=== PATIENT | male | born 1995 | race Caucasian/White ===

== ENCOUNTER 2017-11-15 19:58 | Emergency (ER) | payer SELFPAY ==
[2017-11-15] MEDS ORDERED: LIDOCAINE 1% INJ-PF (10 MG/ML) 30 ML SDV INJ ONE (20:26)
[2017-11-15] MEDS ORDERED: DIPH/PERTUSS(ACELL)/TETANUS VAC/PF 0.5 ML SYR (>=10YO) IM ONE (20:43)
--- NOTE | 2017-11-15 20:46 | ER Document Report ---
ED General - General Chief Complaint: Suicidal Ideation Stated Complaint: LEFT FOREARM LACERATION Time Seen by Provider: 11/15/17 20:20 Mode of Arrival: Ambulatory Information source: Patient, Relative Notes: 22-year-old male presents with self-inflicted wound to the left dorsal forearm. Patient notes occurred just prior to arrival, states he was stressed was having an argument about getting a new job and decided to relieve his stress by stabbing himself. Patient denies any previous similar episodes Patient has not had tetanus since his childhood vaccinations TRAVEL OUTSIDE OF THE [place] IN LAST 30 DAYS: No - HPI Onset: Just prior to arrival Onset/Duration: Sudden Quality of pain: Sharp Severity: Mild Pain Level: 1 Associated symptoms: Other Exacerbated by: Movement Relieved by: Denies Similar symptoms previously: No Recently seen / treated by doctor: No Past Medical History - Social History Smoking Status: Never Smoker Cigarette use (# per day): No Chew tobacco use (# tins/day): No Smoking Education Provided: No Frequency of alcohol use: None Drug Abuse: None Family History: Reviewed & Not Pertinent Patient has suicidal ideation: No Patient has homicidal ideation: No Renal/ Medical History: Denies: Hx Peritoneal Dialysis Review of Systems - Review of Systems Notes: REVIEW OF SYSTEMS: CONSTITUTIONAL : Denies fever, chills, or sweats. Denies recent illness. EENT: Denies eye, ear, throat, or mouth pain or symptoms. Denies nasal or sinus congestion or discharge. Denies throat, tongue, or mouth swelling or difficulty swallowing. CARDIOVASCULAR: Denies chest pain. Denies palpitations or racing or irregular heart beat. Denies ankle edema. RESPIRATORY: Denies cough, cold, or chest congestion. Denies shortness of breath, difficulty breathing, or wheezing. GASTROINTESTINAL: Denies abdominal pain or distention. Denies nausea, vomiting , or diarrhea. Denies blood in vomitus, stools, or per rectum. Denies black, tarry stools. Denies constipation. GENITOURINARY: Denies difficulty urinating, painful urination, burning, frequency, blood in urine, or discharge. MUSCULOSKELETAL: Denies back or neck pain or stiffness. Denies joint pain or swelling. SKIN: Laceration forearm HEMATOLOGIC : Denies easy bruising or bleeding. LYMPHATIC: Denies swollen, enlarged glands. NEUROLOGICAL: Denies confusion or altered mental status. Denies passing out or loss of consciousness. Denies dizziness or lightheadedness. Denies headache. Denies weakness or paralysis or loss of use of either side. Denies problems with gait or speech. Denies sensory loss, numbness, or tingling. Denies seizures. PSYCHIATRIC: Denies anxiety or stress. Denies depression, suicidal ideation, or homicidal ideation. ALL OTHER SYSTEMS REVIEWED AND NEGATIVE. Dictation was performed using [employer] voice recognition software PHYSICAL EXAMINATION: GENERAL: Well-appearing, well-nourished and in no acute distress. HEAD: Atraumatic, normocephalic. EYES: Pupils equal round and reactive to light, extraocular movements intact, sclera anicteric, conjunctiva are normal. ENT: Nares patent, oropharynx clear without exudates. Moist mucous membranes. NECK: Normal range of motion, supple without lymphadenopathy LUNGS: Breath sounds clear to auscultation bilaterally and equal. No wheezes rales or rhonchi. HEART: Regular rate and rhythm without murmurs ABDOMEN: Soft, nontender, nondistended abdomen. No guarding, no rebound. No masses appreciated. Musculoskeletal: Normal range of motion, no pitting or edema. No cyanosis. NEUROLOGICAL: Cranial nerves grossly intact. Normal speech, normal gait. Normal sensory, motor exams PSYCH: Normal mood, normal affect. SKIN: Laceration 6 cm left dorsal forearm venous bleed noted Physical Exam - Vital signs Vitals: Temp Pulse Resp BP Pulse Ox 98.8 F 91 18 137/86 H 100 11/15/17 20:14 11/15/17 20:14 11/15/17 20:14 11/15/17 20:14 11/15/17 20:14 Course - Re-evaluation Re-evalutation: 11/15/17 20:46 Patient will be held involuntarily due to his actions, area was evaluated, suture set up has been ordered tetanus will be updated 11/16/17 00:43 I had a long discussion with the father, he states he feels safe taking the patient home and does not wish for him to be held in the emergency department overnight, I stated that I will allow him to take him home as he takes responsibility for the patient. Patient's wound was explored thoroughly, no injury of any tendons or arterial bleed was noted there was a large hematoma which was removed initially the small venous bleeders were noted and these were stopped with direct pressure. The area was cleansed extensively and multiple sutures were placed. Very strict return precautions were provided for infectious process. Father states he understands and will bring the patient back if there are any other concerns patient himself states he understands as well Patient will be given follow-up with hand surgeon for further evaluation care resources for mental health have been provided as well After performing a Medical Screening Examination, I estimate there is LOW risk for OPEN FRACTURE, COMPARTMENT SYNDROME, TENDON RUPTURE, ACUTE NEUROVASCULAR INJURY, or RETAINED FOREIGN BODY, thus I consider the discharge disposition reasonable. Also, there is no evidence or peritonitis, sepsis, or toxicity. I have reevaluated this patient multiple times and no significant life threatening changes are noted. The patient and I have discussed the diagnosis and risks, and we agree with discharging home with close follow-up with the understanding that symptoms and presentations can change. We also discussed returning to the Emergency Department immediately if new or worsening symptoms occur. We have discussed the symptoms which are most concerning (e.g., changing or worsening pain, fever, numbness, weakness, cool or painful digits) that necessitate immediate return. - Vital Signs Vital signs: Temp Pulse Resp BP Pulse Ox 98.6 F 101 H 18 153/86 H 99 11/15/17 22:42 11/15/17 22:42 11/15/17 22:42 11/15/17 22:42 11/15/17 22:42 - Laboratory Result Diagrams: 11/15/17 20:40 11/15/17 20:40 Laboratory results interpreted by me: 11/15/17 11/15/17 20:40 21:30 Calcium 10.3 H Albumin 5.1 H Urine Ketones 20 H Urine Nitrite POSITIVE H Ur Leukocyte Esterase TRACE H Salicylates < 1.0 L Acetaminophen < 10 L Procedures - Laceration/Wound Repair Left Posterior Arm Time completed: 21:00 Wound length (cm): 7 Wound's Depth, Shape: Into muscle Laceration pre-procedure: Sterile PPE donned, Chloraprep applied, Sterile drapes applied Anesthetic type: 1% Lidocaine Volume Anesthetic (mLs): 15 Wound explored: Clean, No foreign body removed Irrigated w/ Saline (mLs): 1,500 Wound Debrided: Extensive Wound Repaired With: Sutures Suture Size/Type: 4:0, Ethilon Number of Sutures: 7 Post-procedure wound care: Sterile dressing applied Post-procedure NV exam normal: Yes Complications: No Discharge - Discharge Clinical Impression: Self-inflicted injury, Stress reaction Laceration of forearm Qualifiers: Encounter type: initial encounter Laterality: left Qualified Code(s): S51.812A - Laceration without foreign body of left forearm, initial encounter Condition: Stable Disposition: HOME, SELF-CARE Instructions: Laceration Care (OM) Additional Instructions: Follow up with your physician tomorrow for further care or return to the ED IMMEDIATELY if symptoms worsen or new concerns occur. If you cannot afford to follow up with your primary care physician a list of low cost clinics have been provided at the end of your discharge papers as well. Follow-up in 10-14 days for removal of sutures are immediately if there is any sign of infection Referrals: SHALONDA CHRISTENSEN DO [ACTIVE STAFF] - Follow up in 3-5 days
[2017-11-15 20:51] LABS: ABSOLUTE LYMPHOCYTES (AUTO) 1.4 10^3/uL (0.5-4.7); ABSOLUTE MONOCYTES (AUTO) 0.5 10^3/uL (0.1-1.4); BASOPHILS % (AUTO) 0.4 % (0-2); EOSINOPHILS % (AUTO) 0.8 % (0-6); LYMPHOCYTES % (AUTO) 24.2 % (13-45); MEAN CORPUSCULAR HEMOGLOBIN 31.4 pg (27.0-33.4); MEAN CORPUSCULAR VOLUME 92 fl (80-97); MONOCYTES % (AUTO) 7.5 % (3-13); PLATELET COUNT 260 10^3/uL (150-450); RED BLOOD COUNT 4.77 10^6/uL (4.35-5.55); RED CELL DISTRIBUTION WIDTH 13.2 % (11.5-14.0); SEGMENTED NEUTROPHILS % (AUTO) 67.1 % (42-78); TOTAL CELLS COUNTED % (AUTO) 100 %
[2017-11-15 21:11] LABS: ALANINE AMINOTRANSFERASE 32 U/L (21-72); ALBUMIN 5.1 g/dL (3.5-5.0); ALKALINE PHOSPHATASE 40 U/L (38-126); ANION GAP 12 (5-19); ASPARTATE AMINO TRANSFERASE 21 U/L (17-59); BILIRUBIN,DIRECT 0.4 mg/dL (0.0-0.4); BILIRUBIN,TOTAL 0.7 mg/dL (0.2-1.3); BLOOD UREA NITROGEN 11 mg/dL (7-20); CALCIUM 10.3 mg/dL (8.4-10.2); CARBON DIOXIDE 27 mmol/L (22-30); CHLORIDE 102 mmol/L (98-107); GLUCOSE 103 mg/dL (75-110); POTASSIUM 3.6 mmol/L (3.6-5.0); SODIUM 141.1 mmol/L (137-145)
[2017-11-15 21:16] LABS: ACETAMINOPHEN < 10 ug/mL (10-30); ALCOHOL < 10 mg/dL (NONE DETECTED); SALICYLATE < 1.0 mg/dL (2.0-20.0)
[2017-11-15 22:08] LABS: APPEARANCE,URINE SLIGHTLY-CLOUDY; BILIRUBIN,URINE NEGATIVE (NEGATIVE); COLOR,URINE YELLOW; GLUCOSE, URINE NEGATIVE (NEGATIVE); KETONES,URINE 20 mg/dL (NEGATIVE); LEUKOCYTE ESTERASE,URINE TRACE (NEGATIVE); NITRITE,URINE POSITIVE (NEGATIVE); PROTEIN,URINE NEGATIVE (NEGATIVE); URINE SPECIFIC GRAVITY 1.014; UROBILINOGEN,URINE NEGATIVE mg/dL (<2.0)
[2017-11-15 22:21] LABS: URINE AMPHETAMINES SCREEN NEGATIVE; URINE BARBITURATES SCREEN NEGATIVE; URINE BENZODIAZEPINES SCREEN NEGATIVE; URINE COCAINE SCREEN NEGATIVE; URINE MARIJUANA (THC) SCREEN NEGATIVE; URINE METHADONE SCREEN NEGATIVE; URINE PHENCYCLIDINE SCREEN NEGATIVE
[2017-11-15] MEDS ORDERED: ACETAMINOPHEN 325 MG TABLET PO ONE (22:28)
[2017-11-15 22:47] VITALS: BP 153/86
--- NOTE | 2017-11-16 07:59 | EKG REPORT ---
SEVERITY:- NORMAL ECG - SINUS RHYTHM : Confirmed by: Yunior Albright MD 16-Nov-2017 07:58:13
== END 2017-11-15 22:56 | disposition home or self-care (01) ==
LOC: ER 19:58
DX: S51.812A Laceration without foreign body of left forearm, initial encounter (principal); F43.9 Reaction to severe stress, unspecified; X78.9XXA Intentional self-harm by unspecified sharp object, initial encounter; R45.851 Suicidal ideations
CPT/HCPCS: 93005; 99284; 90471; 36415; 80307 ×4; 85025; 80053; 81001; 90715; 93010; J3490

== ENCOUNTER 2017-11-16 16:21 | Emergency (ER) | payer SELFPAY ==
--- NOTE | 2017-11-16 16:41 | ER Document Report ---
ED General - General TRAVEL OUTSIDE OF THE [place] IN LAST 30 DAYS: No - General Chief Complaint: Wound Recheck Stated Complaint: SUICIDAL IDEATION Time Seen by Provider: 11/16/17 16:33 Notes: The patient is a 22-year-old male who presents by EMS after he was at the urgent care for a wound recheck. He was in the ER last night for a left wrist laceration that was sutured. He denied any suicidal ideation at that time and said he only cut himself because of stress. When he went to the urgent care center today, they were concerned about suicidal ideation and was sent to the ER. Patient denies numbness of the arm, heavy bleeding, fevers or discharge out of the wound. (DULCE MARIA SAMPSON) - Related Data Allergies/Adverse Reactions: No Known Allergies Allergy (Verified 11/16/17 16:45) Past Medical History - General Information source: Patient, Emergency Med Personnel, Outside Facility Records - Social History Smoking Status: Unknown if Ever Smoked Family History: Reviewed & Not Pertinent Renal/ Medical History: Denies: Hx Peritoneal Dialysis Review of Systems - Review of Systems Notes: REVIEW OF SYSTEMS: CONSTITUTIONAL: -fevers, -chills EENT: -eye pain, -difficulty swallowing, -nasal congestion CARDIOVASCULAR: -chest pain, -syncope. RESPIRATORY: -cough, -SOB GASTROINTESTINAL: -abdominal pain, -nausea, -vomiting, -diarrhea GENITOURINARY: -dysuria, -hematuria MUSCULOSKELETAL: -back pain, -neck pain SKIN: +left arm laceration HEMATOLOGIC: -easy bruising or bleeding. LYMPHATIC: -swollen, enlarged glands. NEUROLOGICAL: -altered mental status or loss of consciousness, -headache, - neurologic symptoms PSYCHIATRIC: -anxiety, -depression, -SI or HI ALL OTHER SYSTEMS REVIEWED AND NEGATIVE. (DULCE MARIA SAMPSON) Physical Exam - Notes Notes: PHYSICAL EXAMINATION: GENERAL: Well-appearing, well-nourished and in no acute distress. HEAD: Atraumatic, normocephalic. EYES: Pupils equal round and reactive to light, extraocular movements intact, sclera anicteric, conjunctiva are normal. ENT: nares patent, oropharynx clear without exudates. Moist mucous membranes. NECK: Normal range of motion, supple without lymphadenopathy LUNGS: Breath sounds clear to auscultation bilaterally and equal. No wheezes rales or rhonchi. HEART: Regular rate and rhythm without murmurs ABDOMEN: Soft, nontender, normoactive bowel sounds. No guarding, no rebound. No masses appreciated. EXTREMITIES: Normal range of motion, no pitting or edema. No cyanosis. NEUROLOGICAL: Cranial nerves grossly intact. Normal speech, normal gait. Normal sensory and motor exams. PSYCH: Normal mood, normal affect. Denies current SI or HI. SKIN: Well-healing left arm laceration that is sutured. (DULCE MARIA SAMPSON) Course - Re-evaluation Re-evalutation: Laceration appears well healing and no signs of infection, compartment syndrome or neurovascular compromise. Patient denies any suicidal thoughts and said that this was a stress reaction. Since this is the patient's second ER visit in less than 24 hours, will obtain a psych consult to assess for presence of suicidality. 11/16/17 17:29 Pt evaluaated by mental health and recommends discharge with outpatient follow-up at [facility]. No criteria for IVC at this time. Will begin Celexa. Given very strict return precautions and he understands. (DULCE MARIA SAMPSON) Discharge - Discharge Clinical Impression: Encounter for wound re-check, Stress reaction Condition: Stable Disposition: HOME, SELF-CARE Additional Instructions: Depression Your evaluation reveals that you have mental depression. While symptoms may be vague, they often include disturbance of sleep, fatigue, loss of appetite , and general loss of interest in life. While depression may be a side effect of drugs, or a reaction to a major change in your life, many cases have no known cause. If depression is acute, and related to a major loss in your life, you can expect it to clear completely with time. If you have been depressed a long time , are prone to repeated bouts of depression or low mood, or have been thinking of suicide, get help. Depression can be treated with anti-depressant medication and counselling. Long-term depression will often take a few weeks to clear, even with appropriate medication. Follow-up care is important. Contact your physician, the hospital emergency center, crisis line, or your counsellor if you are losing control or having self-destructive thoughts. Suicidal Ideation Suicidal ideation is a common medical term for thoughts about suicide, which may be as detailed as a formulated plan, without the suicidal act itself. Although most people who undergo suicidal ideation do not commit suicide, some go on to make suicide attempts. The range of suicidal ideation varies greatly from fleeting to detailed planning, role playing, and unsuccessful attempts. While thoughts about suicide are common, most people do not carry out serious actions to commit suicide. However, based upon your evalutation and discussion with you, we believe you are currently at risk to act upon your thoughts of suicide. Therefore, you will be admitted to a facility for inpatient care. Prescriptions: Citalopram Hydrobromide [Celexa 20 mg Tablet] 20 mg PO DAILY #7 tablet Referrals: [facility] [Outside] - Follow up tomorrow
--- NOTE | 2017-11-16 17:22 | PSYCHOLOGICAL NOTE ---
Psych Note - Psych Note Psych Note: Consult: 1650 Final Disposition 1711 Patient reports that he tried to kill himself last night by cutting his arm with a pocket knife. Patient reports that his dad sent him to the hospital. Patient denies HI/SI and reports that he was only feeling that way last night because he felt that he was getting no where in his life. Patient reports that he has been trying to get medicaid and if he can get it today he would want to seek therapy for his depression. Patient reports he was never officially diagnosed with depression but that has been feeling depressed for 2 years. Patient reports he had therapy as a kid. Patient reports that he stays in bed, is not interested in eating, and doesn't enjoy things. Patient reports he is employed at the [employer]. Patient reports that he sleeps well through the night. Patient reports he lives with his mother and father in a private residence. Clinician observed patient has flat affect. Patient reports he does not want to go through this experience again, patient clarified he is referring to depression, attempting to cut himself, and coming to the hospital. Collateral: Patient's attending physician Dr. Jones reports patient's cuts on his arm are superficial. Patient's doctor reports patient was referred here by his urgent care and that patient is no longer in a crisis. Patient's physician explained that patient was discharged last night due to his cut and today went to urgent care for follow up and that is when he was referred back to ED. Medication Recommendation: Medication recommendation made by psychiatric provider Dr. Kai MD includes: Celexa 20 mg PO once daily. Diagnosis: 300.4 ( 34.1) Persistent Depressive Disorder ( Dysthymia) Impression/Plan: Patient is psychiatrically clear for discharge. Recommendation for patient to follow up with [facility]. Resource sheet provided to patient. Consulted with Dr. Lopez regarding the management and care of patient.
[2017-11-16 18:26] VITALS: BP 131/83
== END 2017-11-16 17:55 | disposition home or self-care (01) ==
LOC: ER 16:21
DX: S61.512D Laceration without foreign body of left wrist, subsequent encounter (principal); X78.1XXA Intentional self-harm by knife, initial encounter; F43.9 Reaction to severe stress, unspecified
CPT/HCPCS: 99285